=== PATIENT | female | born 1970 | race Caucasian/White ===

== ENCOUNTER → 2020-12-29 | Outpatient (CLI) | payer BC ==
--- NOTE | 2020-12-29 17:00 | Diagnostic Imaging Report ---
PROCEDURE: Pelvic complete, transabdominal and transvaginal sonogram. Limited pelvic doppler. TECHNIQUE: Multiple real-time grayscale images were obtained of the pelvis in various projections transabdominally and transvaginally. Limited pelvic duplex images were obtained. HISTORY: Abnormal uterine bleeding. COMPARISON: None available. FINDINGS: Uterus: The uterus is anteverted and measures 11.5 x 5.5 x 6.1 cm. There is an intramural uterine fibroid measuring up to 2.1 cm. Endometrium: The endometrium is increased in thickness and measures 2.1 cm. There is mild vascularity seen within the endometrium. There is no fluid within the endometrial cavity. Adnexa: The ovaries are nonvisualized secondary to overlying bowel gas. Other: There is no free fluid within the pelvis. IMPRESSION: 1. Thickened hypervascular appearance of the endometrium measuring 2.1 cm which is nonspecific in a premenopausal female. Differential consideration could include endometritis, submucosal fibroid, or polyp. Recommend correlation with endometrial biopsy. 2. A 2.1 cm intramural uterine fibroid. Dictated by: Dictated on workstation # [id number]
== END ==
LOC: RAD 15:15
PROVIDERS: ATTEND Obstetrics & Gynecology
DX: D25.1 Intramural leiomyoma of uterus (principal)
CPT/HCPCS: 76830; 76856

== ENCOUNTER 2021-01-04 05:40 | Outpatient (CLI) | payer BC ==
[~2021-01-04] VITALS: Ht 162 cm; Wt 122.0 kg
[2021-01-04] MEDS ORDERED: ZINC30TA2 PO (11:11)
[2021-01-04] MEDS ORDERED: LISI40TA9 PO (11:11)
[2021-01-04] MEDS ORDERED: ASPI-808 PO (11:11)
[2021-01-04] MEDS ORDERED: HYDR12.56 PO (11:11)
[2021-01-04] MEDS ORDERED: ASCO500T17 PO (11:11)
[2021-01-04] MEDS ORDERED: CHOL-34 PO (11:11)
[2021-01-04] MEDS ORDERED: AMLO-250 PO (11:11)
[2021-01-04] MEDS ORDERED: METH2.5T PO (11:11)
== END 2021-01-04 11:19 | disposition home or self-care (01) ==
LOC: PREOP 05:40
PROVIDERS: ATTEND Obstetrics & Gynecology
DX: Z01.818 Encounter for other preprocedural examination (principal)

== ENCOUNTER 2021-01-11 10:57 | Day surgery (SDC) | payer BC ==
[~2021-01-11] VITALS: Ht 162 cm; Wt 122.0 kg
[2021-01-11] VITALS (9 sets, daily range): BP systolic 80–156; BP diastolic 46–91
[~2021-01-11 10:57] MED LIST: AMLO-250 PO; ASCO500T17 PO; ASPI-808 PO; CHOL-34 PO; HYDR12.56 PO; LISI40TA9 PO; METH2.5T PO; ZINC30TA2 PO
[2021-01-11] MEDS ORDERED: ceFAZolin 2 GM IV Premixed 50 ML IV ONE (11:15)
[2021-01-11] MEDS: LACTATED RINGERS 1,000 ML IV PRN ×2 (11:33→13:00)
[2021-01-11 11:43] LABS: BASOPHILS % (AUTO) 0 % (0-10); EOSINOPHILS # (AUTO) 0.1 10^3/uL (0.0-0.3); EOSINOPHILS % (AUTO) 1 % (0-10); HEMATOCRIT 36 % (35-52); HEMOGLOBIN 11.5 g/dL (11.5-16.0); LYMPHOCYTES % (AUTO) 31 % (12-44); MEAN CORPUSCULAR HEMOGLOBIN 29 pg (25-34); MEAN CORPUSCULAR HGB CONC 32 g/dL (32-36); MEAN CORPUSCULAR VOLUME 91 fL (80-99); MEAN PLATELET VOLUME 10.2 fL (9.0-12.2); MONOCYTES # (AUTO) 0.4 10^3/uL (0.0-1.0); MONOCYTES % (AUTO) 6 % (0-12); NEUTROPHILS # (AUTO) 4.1 10^3/uL (1.8-7.8); NEUTROPHILS % (AUTO) 62 % (42-75); PLATELET COUNT 282 10^3/uL (130-400); WHITE BLOOD COUNT 6.6 10^3/uL (4.3-11.0)
[2021-01-11] MEDS ORDERED: ONDANSETRON 4 MG/2 ML (SDV) Z0FRAN ONE (12:15)
[2021-01-11] MEDS ORDERED: fentaNYL INJ 100 MCG/2 ML AMP ONE (12:15)
[2021-01-11] MEDS ORDERED: proPOfol 200 MG/20 ML (DIPRIVAN) VIAL IV ONE (12:15)
[2021-01-11] MEDS ORDERED: MIDAZOLAM 2 MG/2 ML (VERSED) VIAL ONE (12:15)
[2021-01-11] MEDS ORDERED: LIDOCAINE PF 2% 5 ML (XYLOCAINE) VIAL ONE (12:15)
[2021-01-11] MEDS ORDERED: SEVOFLURANE (ULTANE) 15 ML INHAL SOLN ONE ×3 (12:16→13:41)
--- NOTE | 2021-01-11 12:57 | Progress Note-Pre Operative ---
Pre-Operative Progress Note H&P Reviewed The H&P was reviewed, patient examined and no changes noted. Date Seen by Provider: January 11, 2021 Time Seen by Provider: 12:50 Date H&P Reviewed: January 11, 2021 Time H&P Reviewed: 12:50 Pre-Operative Diagnosis: thickened endometrium, abnormal uterine bleeding SUDHA MORSE DO January 11, 2021 12:57
[2021-01-11] MEDS ORDERED: KETOROLAC 30 MG/ML VIAL ONE (13:37)
--- NOTE | 2021-01-11 13:54 | Operative Report ---
Operative Report Date of Procedure/Surgery January 11, 2021 Surgeon (s) SUDHA MORSE DO Risk Control Field Representative (s): Manohar Croft, MS III Post-Operative Diagnosis submucosal fibroid post menopausal bleeding Procedure Performed hysteroscopy, dilation and curettage Description of Procedure Anesthesia Type: General Estimated blood loss (mL): minimal Specimen(s) collected/removed endometrial curettings Allergies and Home Medications Allergies Coded Allergies: No Known Drug Allergies (Unverified , 01/04/21) Home Medications Amlodipine Besylate 5 Mg Tablet, 5 MG PO DAILY, (Reported) Ascorbic Acid 500 Mg Tablet, 500 MG PO DAILY, (Reported) Aspirin Unknown Strength Tablet, Unknown Dose PO DAILY, (Reported) Hydrochlorothiazide 12.5 Mg Tablet, 12.5 MG PO DAILY, (Reported) Lisinopril 40 Mg Tablet, 40 MG PO DAILY, (Reported) Methotrexate Sodium 2.5 Mg Tablet, 8 TAB PO WEEK, (Reported) Zinc Gluconate 30 Mg Tablet, 30 MG PO DAILY, (Reported) SUDHA MORSE DO January 11, 2021 13:53
[2021-01-11] MEDS ORDERED: ACET-2267 PO (13:58)
[2021-01-11] MEDS ORDERED: IBUP-1773 PO ×2 (13:58→16:17)
[2021-01-11] MEDS ORDERED: OXYC5TAB PO ×2 (13:58→16:17)
[2021-01-11] MEDS ORDERED: KETOROLAC 30 MG/ML VIAL IVP ONE (14:00)
--- NOTE | 2021-01-11 14:01 | Discharge Inst-Women's Service ---
Discharge Inst-Women's Serv Depart Medication/Instructions New, Converted or Re-Newed RX: RX on Chart Instructions expect bleeding for 1-2 weeks The entire fibroid was not able to be removed hysteroscopically. Will await pathology and then discuss further treatment. Final Diagnosis post menopausal bleeding thickened endometrium submucosal fibroid Problems Reviewed?: Yes Consults/Follow Up Additional Follow Up: Yes (1 week ) Activity Activity: Activity as Tolerated Driving Instructions: No Driving for 24 Hours NO SMOKING: NO SMOKING Nothing Inside Vagina: No Douching, No [place], No Tampons Diet Discharge Diet: No Restrictions Symptoms to Report to : Bleeding Excessive, Pain Increased, Vaginal Bleeding Increase, Vaginal Discharge Foul For Any Problems or Questions: Contact Your Physician SUDHA MORSE DO January 11, 2021 14:01
--- NOTE | 2021-01-11 14:39 | Anesthesia-General Post-Op ---
General Patient Condition Mental Status/LOC: Same as Preop Cardiovascular: Satisfactory Nausea/Vomiting: Absent Respiratory: Satisfactory Pain: Controlled Complications: Absent Post Op Complications Complications None Follow Up Care/Instructions Patient Instructions None needed. Anesthesia/Patient Condition Patient Condition Patient is doing well, no complaints, stable vital signs, no apparent adverse anesthesia problems. No complications reported per nursing. MEGAN HAYDEN CRNA January 11, 2021 14:39
== END 2021-01-11 16:15 | disposition home or self-care (01) ==
LOC: SDC 10:57
PROVIDERS: ATTEND Obstetrics & Gynecology
DX: N84.0 Polyp of corpus uteri (principal); D25.0 Submucous leiomyoma of uterus; I10 Essential (primary) hypertension; E66.01 Morbid (severe) obesity due to excess calories; Z68.42 Body mass index [BMI] 45.0-49.9, adult; Z79.82 Long term (current) use of aspirin; Z79.899 Other long term (current) drug therapy
CPT/HCPCS: 36415; 84703; 85025; 87081; 88305

== ENCOUNTER 2021-05-03 05:31 | Outpatient (CLI) | payer BC ==
[~2021-05-03] VITALS: Ht 162.6 cm; Wt 124.6 kg
[~2021-05-03 05:31] MED LIST changes: +ACET-2267 PO; +IBUP-1773 PO; +OXYC5TAB PO
[2021-05-03] MEDS ORDERED: GUSE100A SQ (13:45)
[2021-05-03] MEDS ORDERED: NORETHINDRONE (13:45)
== END 2021-05-03 14:56 | disposition home or self-care (01) ==
LOC: PREOP 05:31
PROVIDERS: ATTEND Obstetrics & Gynecology
DX: Z01.818 Encounter for other preprocedural examination (principal)

== ENCOUNTER 2021-05-10 06:07 | Day surgery (SDC) | payer BC ==
[~2021-05-10] VITALS: Ht 162 cm; Wt 124.6 kg
[2021-05-10] VITALS (14 sets, daily range): BP systolic 81–151; BP diastolic 43–94
[~2021-05-10 06:07] MED LIST changes: +GUSE100A SQ; +NORETHINDRONE
--- OUTSIDE RECORDS SUMMARY | 2021-05-10 06:12 | XMS REPORT | Clinical Summary ---
Author Author [facility] Organization [facility] Address Unknown Phone Unavailable Care Team Providers Care Food Production Supervisor Name Role Phone Monica Jernigan MD PCP Allergies Not on File Medications Not on file Active Problems Not on file Encounters Care Team Description Date Type Specialty Maycol Barker MD 02/25/2021 Documentation Cardiology Maycol Barker MD 02/24/2021 Documentation Cardiology from Last 3 Months Social History Date Tobacco Use Types Packs/Day Years Used Never Assessed Sex Assigned at Date Recorded Not on file Last Filed Vital Signs Not on file Plan of Treatment Care Team Description Date Type Specialty Maycol Barker MD [address] [facility] [address] [place] [address] [phone] 08/02/2021 Initial consult Cardiology Health Maintenance Due Date Last Done Comments Td/Tdap# 1968 COVID-19 Vaccine (1) 1980 Cervical Cancer Screening 1989 via Pap Smear Colorectal Screening via 2018 Colonoscopy Mammogram Screening 2018 Zoster Vaccine# (1 of 2) 2018 Influenza Vaccine (#1) 2021 Pneumococcal Vaccine: Aged Out No longer eligib le based on patient's age to Pediatrics (0 to 5 Years) complete this topic and At-Risk Patients (6 to 64 Years) Results Not on filefrom Last 3 Months Advance Directives For more information, please contact: [phone] 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
[2021-05-10] MEDS ORDERED: ceFAZolin 2 GM IV Premixed 50 ML IV ONE (06:15)
[2021-05-10] MEDS ORDERED: metroNIDAZOLE 500MG/100ML IVPB 100 ML IV ONE (06:15)
[2021-05-10 06:30] LABS: BILIRUBIN,URINE 1+ (NEGATIVE); CLARITY,URINE CLEAR; COLOR,URINE YELLOW; GLUCOSE, URINE (UA) NEGATIVE (NEGATIVE); KETONES,URINE NEGATIVE (NEGATIVE); LEUKOCYTE ESTERASE ,URINE NEGATIVE (NEGATIVE); NITRITE,URINE NEGATIVE (NEGATIVE); PROTEIN,URINE 1+ (NEGATIVE)
[2021-05-10 06:40] LABS: BACTERIA,URINE FEW /HPF
[2021-05-10 06:41] LABS: GRANULAR CASTS,URINE 0-2 /LPF; HYALINE CASTS, URINE 0-2 /LPF
[2021-05-10] MEDS: LACTATED RINGERS 1,000 ML IV PRN ×3 (07:02→09:41)
[2021-05-10] MEDS ORDERED: LIDOCAINE/EPI 1%-1:100,000 (XYLOCAINE) 20ML ONE (07:03)
[2021-05-10 07:12] LABS: BASOPHILS % (AUTO) 0 % (0-10); EOSINOPHILS % (AUTO) 0 % (0-10); HEMATOCRIT 38 % (35-52); HEMOGLOBIN 12.1 g/dL (11.5-16.0); LYMPHOCYTES # (AUTO) 1.5 10^3/uL (1.0-4.0); LYMPHOCYTES % (AUTO) 16 % (12-44); MEAN CORPUSCULAR HEMOGLOBIN 29 pg (25-34); MEAN CORPUSCULAR HGB CONC 32 g/dL (32-36); MEAN CORPUSCULAR VOLUME 89 fL (80-99); MEAN PLATELET VOLUME 10.6 fL (9.0-12.2); MONOCYTES # (AUTO) 0.5 10^3/uL (0.0-1.0); MONOCYTES % (AUTO) 6 % (0-12); NEUTROPHILS # (AUTO) 7.3 10^3/uL (1.8-7.8); NEUTROPHILS % (AUTO) 77 % (42-75); PLATELET COUNT 338 10^3/uL (130-400); WHITE BLOOD COUNT 9.5 10^3/uL (4.3-11.0)
[2021-05-10] MEDS ORDERED: fentaNYL INJ 100 MCG/2 ML AMP ONE ×2 (07:28→09:15)
[2021-05-10] MEDS ORDERED: LIDOCAINE PF 2% 5 ML (XYLOCAINE) VIAL ONE (07:28)
[2021-05-10] MEDS ORDERED: ROCURONIUM 10 MG/ML 5 ML SYRINGE IV ONE (07:28)
[2021-05-10] MEDS ORDERED: ONDANSETRON 4 MG/2 ML (SDV) Z0FRAN ONE ×2 (07:28→09:37)
[2021-05-10] MEDS ORDERED: MIDAZOLAM 2 MG/2 ML (VERSED) VIAL ONE (07:28)
[2021-05-10] MEDS ORDERED: proPOfol 200 MG/20 ML (DIPRIVAN) VIAL IV ONE ×2 (07:28→09:17)
--- NOTE | 2021-05-10 07:43 | Progress Note-Pre Operative ---
Pre-Operative Progress Note H&P Reviewed The H&P was reviewed, patient examined and no changes noted. Date Seen by Provider: May 10, 2021 Time Seen by Provider: 07:30 Date H&P Reviewed: May 10, 2021 Time H&P Reviewed: 07:30 Pre-Operative Diagnosis: menorrhagia/uterine fibroids SUDHA MORSE DO May 10, 2021 07:43
[2021-05-10] MEDS ORDERED: KETOROLAC 30 MG/ML VIAL ONE (08:38)
[2021-05-10] MEDS: KETOROLAC 30 MG/ML VIAL IV SCH ×2 (09:15→16:17)
[2021-05-10] MEDS ORDERED: SEVOFLURANE (ULTANE) 15 ML INHAL SOLN ONE (09:35)
[2021-05-10] MEDS ORDERED: GLYCOPYRROLATE 0.2 MG/ML (ROBINUL) 2 ML VIAL ONE (09:36)
[2021-05-10] MEDS ORDERED: NEOSTIGMINE 3 MG/3 ML VIAL ONE (09:36)
--- NOTE | 2021-05-10 09:41 | Operative Report ---
Operative Report Date of Procedure/Surgery May 10, 2021 Surgeon (s) SUDHA MORSE DO Planning Aide (s): NA Post-Operative Diagnosis same adenomyosis Procedure Performed RATH, bilateral salpingectomy Description of Procedure Anesthesia Type: General Estimated blood loss (mL): minimal Specimen(s) collected/removed uterus and bilateral tubes Description of the Procedure After informed consent was obtained, patient was taken into the operating room where general anesthetic was found to be adequate. She was prepped and draped in the usual sterile fashion in the dorsal lithotomy position. A Foote catheter was placed. A speculum was placed in the vagina. The cervix was visualized and the anterior lip was grasped with a sharp toothed tenaculum. The uterus was sounded and depth was approximately 10 centimeters. I placed the Ml device (10 cm) and a 3.5 cm collar was advanced over the cervix. I inserted the Ml without difficulty, inflating the balloon and securing it around the fornix of the cervix. The collar was then secured with sutures at 12 o'clock. Attention was then turned to the patient's abdomen. A supraumbilical incision was made about 8 mm. A Veress needle was inserted and I confirmed intraabdominal placement with a drop in pressure and the saline drop test. The opening pressure was 6 mmHg. I then insufflated the abdomen to a maximum of 15 mmHg with warmed CO2 gas. I placed an additional 8 mm trocar in the left abdomen lateral to the umbilicus approximately 15 cm. The second robotic port was placed about 12 cm lateral to the right placement. This was an 8 mm trocar. These were placed under direct visualization of the laparoscope. 0.50% Marcaine was injected prior to placement of all trocars. When all placements were confirmed, the patient was placed in steep Trendelen luca allowing adequate visualization. The robot was now brought in for docking and docking was accomplished without difficulty. I then took over the command of the robot utilizing the Synchroseal and monopolar felice. I did a bilateral salpingectomy by incising the mesosalpinx and using the Synchroseal. I then clamped the uterus at the cornu clamping the uterine ovarian ligament. I sealed this with the Synchroseal and then excised. Then, I was able to visualize the round ligaments bilaterally and grasped them and cauterized with bipolar cautery and then cut with my felice. I then moved my dissection to the posterior leaves of the broad ligament. I dissected the posterior leaves of the broad ligament off the uterine arteries skeletonizing them bilaterally. I then took a second clamp with the bipolar cautery and with the felice, transected the vessels away from the lateral aspect to the cervical stroma. I dissected the anterior peritoneum off the lower uterine segment. I continually pushed the bladder back and I took excessively great care and I was eventually able to dissect the vesicouterine peritoneum off the lower uterine segment. I then dissected in a V fashion towards the midline between the uterosacral ligaments. This allowed me to skeletonize the uterine vessels bilaterally. The balloon on the ML was insufflated. This allowed me to see the ML circumferentially. I then performed a colpotomy anteriorly and then amputate with cervix away from the vaginal fornix. I then continued the colpotomy circumferentially. Once this was performed, the environmental services assistant removed the uterus, tubes and ovaries through the vagina. She then left the uterus in the vagina to maintain the pneumoperitoneum. . I then began closure of the vaginal cuff. The uterus was left in the vagina to maintain pneumoperitoneum. I closed the apices of the vaginal cuff with 2-0 Vicryl V lock sutures with a colposuspension through the uterosacral ligaments. This suspended the apices of the vaginal cuff. I extended this to the midline from both sides and overlapped the V lock sutures in the midline. Excellent closure is noted and hemostasis is achieved. All the needles were removed from the patient's abdomen. Now, the robotic instruments were removed and the robot was docked back to laparoscopy. The pelvis was irrigated. There was no active bleeding noted. Bilateral ureters were seen the entire time during the surgery and were peristalsing. There was no excessive bleeding noted. The trocars were removed under direct visualization. The laparoscopic sites were visualized and found to be hemostatic. The trocar sites were injected with 0.5% Marcaine. The skin incisions were closed with 4-0 Monocryl in a subcuticular fashion and then with Dermabond. Op sites were placed over the incision sites. The instruments were removed from the vagina and there were no abrasions. Sponge, lap, needle and instrument counts correct times two. Patient was awakened and taken to recovery in a stable condition. Findings of the Procedure large (225 gram) uterus, boggy consistent with adenomyosis and known uterine fibroids normal ovaries, normal tubes, except some peritubal adhesions on the left with some increase in varicosities in the mesosalpinx on the left as well minimal adhesion overlying the left infundibulopelvic ligament to the mesentery of the colon Allergies and Home Medications Allergies Coded Allergies: No Known Drug Allergies (Unverified , 05/10/21) Home Medications Acetaminophen 500 Mg Tablet, 1,000 MG PO Q8H Prescribed by: SUDHA MORSE on 05/10/21 1248 Amlodipine Besylate 5 Mg Tablet, 5 MG PO DAILY, (Reported) Last Action: Reviewed Ascorbic Acid 500 Mg Tablet, 500 MG PO DAILY, (Reported) Last Action: Reviewed Aspirin Unknown Strength Tablet, Unknown Dose PO DAILY, (Reported) Last Action: Reviewed Guselkumab 100 Mg/1 Ml Auto.injct, 100 MG SQ UD, (Reported) Last Action: Reviewed Hydrochlorothiazide 12.5 Mg Tablet, 12.5 MG PO DAILY, (Reported) Last Action: Reviewed Ibuprofen 600 Mg Tablet, 600 MG PO Q6H Prescribed by: ZI ROGERS on 01/11/21 1617 Last Action: Reviewed Ibuprofen 600 Mg Tablet, 600 MG PO Q6HR Prescribed by: SUDHA MORSE on 05/10/21 1248 Lisinopril 40 Mg Tablet, 40 MG PO DAILY, (Reported) Last Action: Reviewed Oxycodone Hcl 5 Mg Tab, 5 MG PO Q4HR PRN for PAIN-SEE DOSE INSTRUCTIONS Prescribed by: SUDHA MORSE on 05/10/21 1249 Zinc Gluconate 30 Mg Tablet, 30 MG PO DAILY, (Reported) Last Action: Reviewed Patient Home Medication List Home Medication List Reviewed: Yes SUDHA MORSE DO May 10, 2021 09:41
[2021-05-10] MEDS ORDERED: ONDANSETRON 4 MG (ZOFRAN) ORAL DISSOLVE TAB PO PRN (09:45)
[2021-05-10] MEDS ORDERED: CHLORASEPTIC LOZENGE MM PRN (09:45)
[2021-05-10] MEDS ORDERED: LACTATED RINGERS 1,000 ML IV SCH (09:45)
[2021-05-10] MEDS ORDERED: morphine INJ 4 MG/ML 1 ML (VIAL/SYRINGE) IV PRN (09:45)
[2021-05-10] MEDS ORDERED: NALOXONE 0.4 MG/ML 1 ML (NARCAN) VIAL IV PRN (09:45)
[2021-05-10] MEDS ORDERED: PROMETHAZINE INJ 25 MG/ML (PHENERGAN) AMP IVP ONE (10:00)
[2021-05-10] MEDS ORDERED: ONDANSETRON 4 MG/2 ML (SDV) Z0FRAN IVP PRN (10:00)
[2021-05-10] MEDS ORDERED: HYDROmorphone 2 MG/ML VIAL (DILAUDID) IV ONE (10:00)
[2021-05-10] MEDS ORDERED: morphine INJ 10 MG/ML 1ML (SYR OR VIAL) IVP ONE (10:00)
[2021-05-10] MEDS ORDERED: PROMETHAZINE INJ 25 MG/ML (PHENERGAN) AMP ONE (10:09)
[2021-05-10] MEDS ORDERED: morphine INJ 10 MG/ML 1ML (SYR OR VIAL) ONE (10:27)
[2021-05-10] MEDS ORDERED: OXC5T PO (12:48)
[2021-05-10] MEDS ORDERED: IBUP-844 PO (12:48)
[2021-05-10] MEDS ORDERED: ACET-2267 PO (12:48)
--- NOTE | 2021-05-10 12:55 | Discharge Inst-Women's Service ---
Discharge Inst-Women's Serv Depart Medication/Instructions New, Converted or Re-Newed RX: Transmitted to Pharmacy Instructions no lifting over 25 lbs nothing in vagina no driving for 1 week Final Diagnosis abnormal uterine bleeding uterine fibroids Problems Reviewed?: Yes Consults/Follow Up Additional Follow Up: Yes (1-2 weeks for incision check and pathology review; 8-10 weeks for pelvic exam) Activity Activity: Activity as Tolerated Driving Instructions: No Driving for 1 Week NO SMOKING: NO SMOKING Nothing Inside Vagina: No Douching, No [place], No Tampons Diet Discharge Diet: No Restrictions Symptoms to Report to DrWen: Bleeding Excessive, Pain Increased, Fever Over 101 Degrees F, Vaginal Bleeding Increase, Cramps in Feet or Legs, Vaginal Discharge Foul For Any Problems or Questions: Contact Your Physician Skin/Wound Care Infection Signs and Symptoms: Increased Redness, Foul Odor of Wound, Increased Drainage, Skin Itchy or Has a Rash, Increased Swelling, Temperature Above 101 F Operative Area Clean and Dry: You May Remove Bandage () Stitches/[place]/Dermabond: Dermabond Bathing Instructions: SUDHA Tran DO May 10, 2021 12:55
[2021-05-10] MEDS ORDERED: ACETAMINOPHEN 500 MG TAB (TYLENOL) PO SCH (14:00)
--- NOTE | 2021-05-11 11:19 | Anesthesia-General Post-Op ---
General Patient Condition Mental Status/LOC: Same as Preop Cardiovascular: Satisfactory Nausea/Vomiting: Absent Respiratory: Satisfactory Pain: Controlled Complications: Absent Post Op Complications Complications None Follow Up Care/Instructions Patient Instructions None needed. Anesthesia/Patient Condition Patient Condition Patient is doing well, no complaints, stable vital signs, no apparent adverse anesthesia problems. No complications reported per nursing. JOSE DAVID MONK CRNA May 11, 2021 11:18
[2021-05-11] MEDS ORDERED: IBUPROFEN 600 MG (MOTRIN) TAB PO SCH (12:00)
== END 2021-05-10 18:40 | disposition home or self-care (01) ==
LOC: SDC 06:07 → WS 10:50 → SDC 18:40
PROVIDERS: ATTEND Obstetrics & Gynecology
DX: D25.1 Intramural leiomyoma of uterus (principal); N84.0 Polyp of corpus uteri; N80.0 Endometriosis of uterus; N72 Inflammatory disease of cervix uteri; I10 Essential (primary) hypertension; E66.01 Morbid (severe) obesity due to excess calories; Z68.42 Body mass index [BMI] 45.0-49.9, adult; Z79.899 Other long term (current) drug therapy; Z79.82 Long term (current) use of aspirin; Z79.891 Long term (current) use of opiate analgesic; Z79.1 Long term (current) use of non-steroidal anti-inflammatories (NSAID); Z98.890 Other specified postprocedural states
CPT/HCPCS: 36415; 81000; 84703; 85025; 86850; 86900; 86901; 87081; 87088

== ENCOUNTER → 2021-06-20 | Outpatient (CLI) | payer BC ==
[~2021-06-20] VITALS: Ht 162.6 cm; Wt 115.9 kg
[~2021-06-20] MED LIST changes: +ACETAMINOPHEN 500 MG TAB (TYLENOL) PO PRN; +CASIRIVIMAB/IMDEVIMAB 1,200 MG in NS (IVPB) 250 ML IV ONE; +EPINEPHrine INJECTION 1 MG/ML AMP IM PRN; +IBUP-844 PO; +ONDANSETRON 4 MG/2 ML (SDV) Z0FRAN IV PRN; +OXC5T PO; +diphenhydrAMINE 50 MG/ML INJ (BENADRYL) IV PRN
[2021-06-20 12:43] VITALS: BP 158/98
[2021-06-20 14:15] VITALS: BP 158/78
== END ==
LOC: INFUSION 12:38
PROVIDERS: ATTEND Physician Assistant
DX: U07.1 COVID-19 (principal)

== ENCOUNTER → 2021-08-19 | Outpatient (CLI) | payer BC ==
[~2021-08-19] MED LIST changes: -ACETAMINOPHEN 500 MG TAB (TYLENOL) PO PRN; -CASIRIVIMAB/IMDEVIMAB 1,200 MG in NS (IVPB) 250 ML IV ONE; -EPINEPHrine INJECTION 1 MG/ML AMP IM PRN; -ONDANSETRON 4 MG/2 ML (SDV) Z0FRAN IV PRN; -diphenhydrAMINE 50 MG/ML INJ (BENADRYL) IV PRN
== END ==
LOC: RAD 15:45
PROVIDERS: ATTEND Obstetrics & Gynecology
DX: Z12.31 Encounter for screening mammogram for malignant neoplasm of breast (principal)
CPT/HCPCS: 77063; 77067

== ENCOUNTER → 2022-04-10 | Outpatient (CLI) | payer BC ==
--- NOTE | 2022-04-10 17:40 | Diagnostic Imaging Report ---
INDICATION: Psoriasis. TECHNIQUE: PA and lateral chest obtained at 04:35 p.m. FINDINGS: Heart and mediastinal silhouette are normal in appearance. The lungs are clear. There is no pneumothorax or pleural fluid. IMPRESSION: Negative chest. Dictated by: Dictated on workstation # [id number]
== END ==
LOC: RAD FS 16:18
DX: L40.0 Psoriasis vulgaris (principal)
CPT/HCPCS: 71046

== ENCOUNTER → 2022-09-08 | Outpatient (CLI) | payer BC ==
--- NOTE | 2022-09-13 09:03 | Diagnostic Imaging Report ---
Indication: Routine screening. Comparison is made with prior mammogram from 08/19/2021 and 06/09/2020. 2-D and 3-D bilateral screening mammography was performed with CAD. CAD is utilized. The current study was also evaluated with a Computer Aided Detection (CAD) system. Scattered fibroglandular densities are identified bilaterally. Both breasts appears stable. No mass or malignant-appearing microcalcifications are seen. Axillae are unremarkable. IMPRESSION: BI-RADS Category 1 No mammographic features suspicious for malignancy are identified. ACR BI-RADS Category 1: Negative. Result letter will be mailed to the patient. Note: At least 10% of breast cancer is not imaged by mammography. Dictated by: Dictated on workstation # [id number]
== END ==
LOC: RAD 15:20
PROVIDERS: ATTEND Obstetrics & Gynecology
DX: Z12.31 Encounter for screening mammogram for malignant neoplasm of breast (principal)
CPT/HCPCS: 77063; 77067